=== PATIENT | male | born 1980 | race Caucasian/White ===

== ENCOUNTER 2019-01-18 14:44 | Emergency (ER) | payer OTHER ==
[~2019-01-18] VITALS: Ht 167.6 cm; Wt 59.0 kg
[~2019-01-18 14:44] MED LIST: NOHOMEMEDICATIONS; NORCO 5-325 TA1 EACH PO; PENICILLIN VK250 MG PO; PROMETHAZINE-D120 ML PO
[2019-01-18] MEDS ORDERED: IBUPROFEN 800800 MG PO (15:20)
[2019-01-18] MEDS ORDERED: NORCO 5-325 TA1 EAC1 PO (15:20)
[2019-01-18] MEDS ORDERED: AMOXICILLIN 50500 MG PO (15:20)
[2019-01-18 15:29] VITALS: BP 144/89
== END 2019-01-18 15:29 | disposition home or self-care (01) ==
LOC: M.ERS 14:44
DX: K04.7 Periapical abscess without sinus (principal); K02.9 Dental caries, unspecified; Z90.49 Acquired absence of other specified parts of digestive tract